=== PATIENT | female | born 1965 | race Two or more races ===

== ENCOUNTER 2019-11-26 13:15 | Outpatient (CLI) | payer OTHER | END 2019-11-26 17:25 | disposition home or self-care (01) | LOC: OFIC 805 13:15 | PROVIDERS: ATTEND Otolaryngology Otology & Neurotology | DX: R22.1 Localized swelling, mass and lump, neck (principal); K11.1 Hypertrophy of salivary gland; K11.21 Acute sialoadenitis ==

== ENCOUNTER → 2019-12-10 | Outpatient (CLI) | payer OTHER | END | disposition home or self-care (01) | LOC: OFIC 805 13:30 | PROVIDERS: ATTEND Otolaryngology Otology & Neurotology | DX: R22.1 Localized swelling, mass and lump, neck (principal); K11.1 Hypertrophy of salivary gland; K11.20 Sialoadenitis, unspecified ==

== ENCOUNTER 2020-08-09 19:37 | Emergency (ER) | payer OTHER ==
[~2020-08-09] VITALS: Ht 149.9 cm; Wt 64.9 kg
[2020-08-09] MEDS ORDERED: TOPROL XL50 M1 (19:48)
[2020-08-09] MEDS ORDERED: SKELAGESIC PO (21:05)
== END 2020-08-09 21:38 | disposition home or self-care (01) ==
LOC: ER 19:37
DX: S90.32XA Contusion of left foot, initial encounter (principal); S60.212A Contusion of left wrist, initial encounter; S60.211A Contusion of right wrist, initial encounter; W18.39XA Other fall on same level, initial encounter; Y93.89 Activity, other specified; Y92.89 Other specified places as the place of occurrence of the external cause; Y99.8 Other external cause status

== ENCOUNTER 2020-08-28 15:15 | Outpatient (CLI) | payer OTHER ==
[~2020-08-28 15:15] MED LIST: SKELAGESIC PO; TOPROL XL50 M1
== END 2020-08-28 15:31 | disposition home or self-care (01) ==
LOC: RAD 15:15
PROVIDERS: ATTEND Orthopaedic Surgery
DX: M79.672 Pain in left foot (principal)

== ENCOUNTER 2020-09-04 08:00 | Outpatient (CLI) | payer OTHER | END 2020-09-04 08:30 | disposition home or self-care (01) | LOC: PPH VACUNA 08:00 | DX: Z23 Encounter for immunization (principal) ==

== ENCOUNTER → 2020-09-04 | Outpatient (CLI) | payer OTHER | END | disposition home or self-care (01) | LOC: RAD 11:17 | PROVIDERS: ATTEND Orthopaedic Surgery | DX: M25.572 Pain in left ankle and joints of left foot (principal) ==

== ENCOUNTER 2020-09-25 08:00 | Outpatient (CLI) | payer OTHER | END 2020-09-25 08:30 | disposition home or self-care (01) | LOC: PPH VACUNA 08:00 | DX: Z23 Encounter for immunization (principal) ==

== ENCOUNTER 2021-03-31 02:00 | Outpatient (CLI) | payer OTHER | END 2021-03-31 02:30 | disposition home or self-care (01) | LOC: PPH VACUNA 02:00 | PROVIDERS: ATTEND Emergency Medicine Pediatric Emergency Medicine | DX: Z23 Encounter for immunization (principal) ==